=== PATIENT | male | born 1970 ===

== ENCOUNTER → 2023-04-20 12:00 | Outpatient (CLI) | payer OTHER, MEDICAID, SELFPAY ==
--- NOTE | 2023-04-20 12:03 | DI.RAD.S_ITS ---
PROCEDURE: XR CERVICAL SPINE 4V OR 5V INDICATIONS: chronic back and neck pain TECHNIQUE: 5 views of the cervical spine were acquired. COMPARISON: None. FINDINGS: Bones: No fractures or dislocations to the T2 level. No suspicious bony lesions. There is limited range of motion between flexion and extension, with preserved normal bony alignment. Straightening of cervical lordosis which may be due to patient positioning and/or concurrent muscle spasms. Moderate multilevel cervical spondylosis with degenerative endplate changes, disc space loss, and endplate osteophyte formation. There is associated multilevel facet arthropathy. Soft tissues: Prevertebral soft tissues are normal in thickness. IMPRESSION: Cervical spine without acute fracture or traumatic malalignment. Straightening of cervical lordosis likely related to patient positioning and/or concurrent muscle spasm. Moderate multilevel cervical spondylosis. Decreased/limited range of motion between flexion and extension with preservation of normal bony alignment. Dictated by: Thomas Magallon M.D. on 04/20/2023 at 15:28 Approved by: Thomas Magallon M.D. on 04/20/2023 at 15:30
--- NOTE | 2023-04-20 12:03 | DI.RAD.S_ITS ---
PROCEDURE: XR THORACIC SPINE 3V INDICATIONS: chronic back and neck pain TECHNIQUE: 3 views of the thoracic spine were acquired. COMPARISON: None. FINDINGS: Bones: No fractures or dislocations. No suspicious bony lesions. 12 pairs of ribs are noted, and appear intact where visualized. Mild multilevel midthoracic spondylosis with degenerative endplate changes, disc space loss and small anterior endplate osteophytes. Soft tissues: No paravertebral stripe thickening. IMPRESSION: Thoracic spine without acute fracture or malalignment. Mild multilevel midthoracic spondylosis. Dictated by: Thomas Magallon M.D. on 04/20/2023 at 15:31 Approved by: Thomas Magallon M.D. on 04/20/2023 at 15:31
--- NOTE | 2023-04-20 12:03 | DI.RAD.S_ITS ---
PROCEDURE: XR LUMBAR SPINE MIN 4V INDICATIONS: chronic back and neck pain TECHNIQUE: 5 views of the lumbar spine acquired, including flexion and extension views. COMPARISON: None. FINDINGS: Bones: 5 nonrib-bearing vertebrae are present. There is minimal grade 1 anterolisthesis measuring approximately 4 mm of L4 on L5. This is likely related to moderate spondylitic changes and facet arthropathy in the lower lumbar spine. No acute compression fractures. Mild multilevel spondylosis. No suspicious bony lesions. Soft tissues: Overlying bowel gas pattern is normal. No suspicious soft tissue calcifications. Flexion/extension: There is normal range of motion, with preserved normal alignment. IMPRESSION: Lumbar spine without acute fracture. Mild multilevel lumbar spondylosis. Normal range of motion with preservation of normal bony alignment between flexion extension view. Grade 1 anterolisthesis of L4 on L5 measuring 4 mm. This is likely related to associated spondylitic changes. Dictated by: Thomas Magallon M.D. on 04/20/2023 at 15:32 Approved by: Thomas Magallon M.D. on 04/20/2023 at 15:36
== END ==
PROVIDERS: PCP Student in an Organized Health Care Education/Training Program; Referring Provider Family Medicine; Visit Provider Family Medicine
DX: M47.812 Spondylosis without myelopathy or radiculopathy, cervical region (principal); M47.814 Spondylosis without myelopathy or radiculopathy, thoracic region; M47.816 Spondylosis without myelopathy or radiculopathy, lumbar region; M54.2 Cervicalgia; M54.50 Low back pain, unspecified; G89.29 Other chronic pain; Z87.828 Personal history of other (healed) physical injury and trauma
CPT/HCPCS: 72050; 72074; 72110

== ENCOUNTER → 2023-04-21 10:26 | Outpatient (CLI) | payer OTHER, MEDICAID, SELFPAY ==
[2023-04-21 11:00] LABS: Add Manual Diff / Slide Review NO; Basophils Absolute Auto 0 /uL (0-100); Basophils Percent Auto 0.2 % (0-2); Eosinophils Absolute Auto 100 /uL (0-450); Eosinophils Percent Auto 2.4 % (2-4); Hemoglobin 14.2 g/dL (13.5-17.5); Lymphocytes Absolute Auto 2200 /uL (1100-4500); Lymphocytes Percent Auto 37.8 % (25-40); Mean Corpuscular HGB Conc 33.7 % (30-36); Mean Corpuscular Hemoglobin 29.6 PG (26-34); Mean Corpuscular Volume 87.9 fL (80-100); Monocytes Absolute Auto 700 /uL (0-900); Monocytes Percent Auto 11.6 % (3-14); Neutrophils Absolute Auto 2700 /uL (1500-7000); Platelet Count 242 X10^3/uL (150-400); Red Blood Cell Count 4.78 X10^6/uL (4.5-5.9); Red Cell Distribution Width 13.3 % (11.6-14.8); White Blood Cell Count 5.7 X10^3/uL (4.5-11.0)
[2023-04-21 11:24] LABS: Alanine Aminotransferase 66 IU/L (<50); Albumin 4.3 g/dL (3.5-5.0); Albumin Globulin Ratio 1.2 (1.0-2.8); Alkaline Phosphatase 100 U/L (38-126); Aspartate Aminotransferase 64 IU/L (17-59); BUN Creatinine Ratio 28.2 (6-22); Bilirubin Total 1.1 mg/dL (0.2-1.3); Blood Urea Nitrogen 24 mg/dL (9-20); Calcium 9.3 mg/dL (8.4-10.2); Carbon Dioxide 25 mmol/L (22-32); Chloride 103 mmol/L (98-107); Cholesterol 221 mg/dL (140-199); Estimated Glomerular Filt Rate > 60 mL/min (>60); Globulin 3.7 g/dL (1.7-4.1); Glucose 113 mg/dL (70-100); HDL Cholesterol 55 mg/dL (40-60); HEMOLYSIS < 15 (0-50); LDL Cholesterol Calculated 137 mg/dL (<100); Potassium 4.3 mmol/L (3.4-5.1); Sodium 136 mmol/L (137-145); Triglycerides 146 mg/dL (35-150)
== END ==
PROVIDERS: PCP Student in an Organized Health Care Education/Training Program; Referring Provider Student in an Organized Health Care Education/Training Program; Visit Provider Student in an Organized Health Care Education/Training Program
DX: R53.83 Other fatigue (principal)
CPT/HCPCS: 36415; 80053; 80061; 84443; 85025